=== PATIENT | male | born 2000 | race Caucasian/White ===

== ENCOUNTER → 2024-03-21 10:21 | Outpatient (REF) | payer OTHER, SELFPAY ==
[2024-03-21 21:11] LABS: Hepatitis B Surface Antibody Indeterminate
[2024-03-23 20:10] LABS: Quantiferon Mitogen minus NIL >10.00 IU/mL; Quantiferon NIL 0.03 IU/mL; Quantiferon TB Gold Plus Negative (Negative)
== END ==
LOC: OHS 10:21
PROVIDERS: ATTENDING PHYSICIAN Nurse Practitioner Family
DX: Z23 Encounter for immunization (principal)
CPT/HCPCS: 36415; 86480; 86706

== ENCOUNTER → 2024-12-15 10:11 | Outpatient (REF) | payer OTHER, BC, SELFPAY ==
[2024-12-15 10:58] LABS: % Basophils 0.8 % (0-2); % Eosinophils 1.4 % (0-6); % Immature Granulocytes 0.4 % (0-0.5); % Monocytes 10.5 % (1.7-9.3); % Neutrophils 52.9 % (42.2-75.2); Absolute Eosinophils 0.1 10^3/uL (0-0.7); Absolute Lymphocytes 1.7 10^3/uL (1.2-3.4); Absolute Monocytes 0.5 10^3/uL (0.1-0.6); Absolute Neutrophils 2.6 10^3/uL (1.4-6.5); Hematocrit 46.2 % (39.0-52.0); Hemoglobin 16.4 g/dL (13.0-18.0); Mean Corp Hgb Conc. 35.5 g/dL (33.0-37.0); Mean Corpuscular Volume 87.3 fL (80.0-94.0); Mean Platelet Volume 10.1 fL (7.4-10.4); Nucleated Red Blood Cells % 0 % (-); Platelet Count 190 10^3/uL (130-400); Red Blood Cell Count 5.29 10^6/uL (4.70-6.10); Red Cell Dist. Width 12.1 % (11.5-14.5); White Blood Cell Count 4.9 10^3/uL (4.8-10.8)
[2024-12-15 11:49] LABS: Amphetamines Negative (Negative); Barbiturates Negative (Negative); Benzodiazepines Negative (Negative); Buprenorphine Negative (Negative); Cocaine Negative (Negative); Marijuana Negative (Negative); Methadone Negative (Negative); Methamphetamines Negative (Negative); Opiates Negative (Negative); Phencyclidine Negative (Negative); Tricyclic Antidepressants Negative (Negative)
[2024-12-15 12:18] LABS: ALT (SGPT) 19 U/L (0-50); AST (SGOT) 23 U/L (17-59); Albumin 5.1 g/dl (3.5-5.0); Alkaline Phosphatase 57 U/L (38-126); Blood Urea Nitrogen 17 mg/dl (9-20); Calcium 9.9 mg/dl (8.4-10.2); Carbon Dioxide 29 mmol/L (22-30); Chloride 99 mmol/L (98-107); Glucose 90 mg/dl (70-99); HDL Cholesterol 60 mg/dl; LDL Cholesterol, Calculated 70 mg/dl; Potassium 4.5 mmol/L (3.5-5.1); Sodium 137 mmol/L (135-145); Total Bilirubin 0.5 mg/dl (0.2-1.3); Total Cholesterol 146 mg/dl (50-199); Total Protein 7.6 g/dl (6.3-8.2); Triglyceride 82 mg/dl (10-149); Very Low Density Lipoprotein 16 mg/dl (0-30); eGFR > 60.00
[2024-12-15 16:49] LABS: Mumps Virus IgG Negative; Rubeola (Measles) IgG Positive; Varicella Zoster IgG (VZV) Positive
[2024-12-15 18:48] LABS: Hepatitis B Surface Antibody Positive; Hepatitis C Antibody Negative (Negative)
[2024-12-15 19:45] LABS: Rubella Low Positive
[2024-12-17 07:41] LABS: Quantiferon Mitogen minus NIL 9.98 IU/mL; Quantiferon NIL 0.02 IU/mL; Quantiferon TB Gold Plus Negative (Negative)
== END ==
LOC: REG 10:11
PROVIDERS: ATTENDING PHYSICIAN Student in an Organized Health Care Education/Training Program
DX: E66.3 Overweight (principal); Z00.00 Encounter for general adult medical examination without abnormal findings; Z01.84 Encounter for antibody response examination; Z23 Encounter for immunization; Z02.0 Encounter for examination for admission to educational institution; Z11.59 Encounter for screening for other viral diseases
CPT/HCPCS: 36415; 80053; 80061; 80306; 85025; 86480; 86706; 86735; 86762; 86765; 86787; 86803

== ENCOUNTER → 2025-01-20 12:35 | Outpatient (REF) | payer OTHER, BC, SELFPAY ==
[2025-01-20 14:31] LABS: Hepatitis B Surface Antigen Negative (Negative)
[2025-01-23 01:42] LABS: Measles Virus (Rubeola)Ab IgG 40.9 AU/mL; Mumps Virus Antibody IgG <5.0 AU/mL; Rubella Virus Antibody IgG 69.5 IU/mL
== END ==
LOC: REG 12:35
PROVIDERS: ATTENDING PHYSICIAN Student in an Organized Health Care Education/Training Program
DX: Z01.84 Encounter for antibody response examination (principal)
CPT/HCPCS: 36415; 86706; 86735; 86762; 86765; 86787; 87340